=== PATIENT | male | born 2000 | race Caucasian/White ===

== ENCOUNTER 2022-02-04 02:43 | Emergency (ER) | payer OTHER, SELFPAY ==
[2022-02-04 02:45] VITALS: BP 119/71; PULSE 95; RESP 18; TEMP 36.4; O2SAT 99
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
[2022-02-04 04:21] VITALS: BP 121/73; PULSE 60; RESP 16; O2SAT 100
[2022-02-04] MEDS: LIDO 1%/EPINEPHRINE 1:100,000 10 ML VIAL (04:24)
== END 2022-02-04 04:23 | disposition home or self-care (01) ==
PROVIDERS: Emergency Provider Emergency Medicine; PCP Pediatrics
DX: S91.312A Laceration without foreign body, left foot, initial encounter (principal); X58.XXXA Exposure to other specified factors, initial encounter; Y93.41 Activity, dancing
CPT/HCPCS: 12002; 99282